=== PATIENT | female | born 1965 | race Caucasian/White ===

== ENCOUNTER 2016-07-12 16:07 | Emergency (ER) | payer OTHER ==
[~2016-07-12] VITALS: Ht 165.1 cm; Wt 62.5 kg
[~2016-07-12 16:07] MED LIST: ALBU18HF INHALATION; ALBU8.5H3 INH; AMO500 PO; BECL8.7A INH; GUAI120S26 PO; IBUP-1542 PO; PRED20TA PO
[2016-07-12 16:21] VITALS: Ht 165.1 cm; Wt 62.5 kg
[2016-07-12] MEDS ORDERED: ALBUTEROL 0.5% (NEB) 2.5 MG/0.5 ML AMP HHN STA (16:49)
[2016-07-12] MEDS ORDERED: METHYLPREDNISOLONE 125 MG INJ IM ONE (17:00)
[2016-07-12] MEDS ORDERED: IPRATROPIUM (NEB) 0.5 MG/2.5 ML AMP HHN ONE (17:00)
[2016-07-12] MEDS ORDERED: ALBU2.5V3 NEB (19:33)
[2016-07-12] MEDS ORDERED: AZIT250T94 PO (19:33)
[2016-07-12] MEDS ORDERED: PRED20TA PO (19:33)
[2016-07-12] MEDS ORDERED: ALBU18HF INHALATION (19:33)
[2016-07-12] MEDS ORDERED: CETI10CA PO (19:34)
--- NOTE | 2016-07-12 19:37 | ERD ---
ER Documentation Chief Complaint Date/Time DATE: 07/12/16 TIME: 19:35 Chief Complaint ASTHMA ATTACK HPI This 51-year-old female presents with wheezing and productive cough for last 3 days. She has a history of asthma. She has a fevers although she does have productive yellowish sputum. She believes her symptoms may be exacerbated possibly by pets at her work for smells of perfumes. She denies any chest pain , vomiting, abdominal pain, headaches. ROS All systems reviewed and are negative except as per history of present illness. Medications Home Meds Active Scripts Cetirizine Hcl* (Zyrtec*) 10 Mg Capsule, 10 MG PO DAILY, #30 TAB.CHEW Prov:YARI KOROMA MD 07/12/16 Albuterol Sulfate* (Albuterol Sulfate* Neb) 0.083%-3 Ml Neb, 2.5 MG NEB Q4 Y for SHORTNESS OF BREATH, #30 EA Prov:YARI KOROMA MD 07/12/16 Albuterol Sulfate* (Ventolin HFA*) 18 Gm Hfa.aer.ad, 2 PUFF INHALATION Q4H, #1 INHALER Prov:YARI KOROMA MD 07/12/16 Azithromycin* (Zithromax*) 250 Mg Tablet, 250 MG PO .ZPACK DIRECTED, #6 TAB TAKE 500 MG (2 TABS) THE FIRST DAY THEN 250 MG (1 TAB) DAYS 2-5 Prov:YARI KOROMA MD 07/12/16 Prednisone* (Prednisone*) 20 Mg Tab, 40 MG PO DAILY for 5 Days, TAB Prov:YARI KOROMA MD 07/12/16 Albuterol Sulfate* (Ventolin HFA*) 18 Gm Hfa.aer.ad, 2 PUFF INHALATION Q4H, #1 INHALER Prov:YARI KOROMA MD 01/22/16 Ibuprofen* (Motrin*) 600 Mg Tab, 600 MG PO Q6, #15 TAB Prov:YARI KOROMA MD 01/22/16 Prednisone* (Prednisone*) 20 Mg Tab, 40 MG PO DAILY for 4 Days, TAB Prov:YARI KOROMA MD 01/22/16 Amoxicillin* (Amoxicillin*) 500 Mg Cap, 500 MG PO TID for 10 Days, CAP Prov:YARI KOROMA MD 01/22/16 Piklmqqhwlt-T-Vscsdwuoro Hb* (Guaifenesin* DM Syrup) 120 Ml Syrup, 10 ML PO Q4H Y for COUGH, #120 ML Prov:MAGDALENA RODRIGUEZ NP 11/11/15 Beclomethasone Dip* (Qvar 40*) 7.3 Gm Inha, 2 PUFF INH BID, #1 INHALER Prov:MAGDALENA RODRIGUEZ NP 11/11/15 Albuterol Sulfate* (Proair HFA*) 8.5 Gm Hfa.aer.ad, 2 PUFF INH Q4H Y for WHEEZING AND SOB, #1 INHALER Prov:MAGDALENA RODRIGUEZ NP 11/11/15 Reported Medications [none] Unknown Strength No Conflict Check 11/11/15 Allergies Allergies: Coded Allergies: No Known Drug Allergies (Verified Allergy, Unknown, 11/11/15) PMhx/Soc History of Surgery: Yes (back surgery) Anesthesia Reaction: No Hx Neurological Disorder: No Hx Respiratory Disorders: Yes (asthma) Hx Cardiac Disorders: No Hx Psychiatric Problems: No Hx Miscellaneous Medical Probl: No Hx Alcohol Use: No Hx Substance Use: No Hx Tobacco Use: No Physical Exam Vitals Vital Signs Date Time Temp Pulse Resp B/P Pulse Ox O2 Delivery O2 Flow Rate FiO2 07/12/16 17:45 90 26 98 21 07/12/16 16:21 98.4 91 18 132/82 95 Physical Exam Const: [] Alert, rvb-mse-rxjtshhxk. Head: Atraumatic Eyes: Normal Conjunctiva ENT: Normal External Ears, Nose and Mouth. TMs normal. Neck: Full range of motion..~ No meningismus. Resp: Clear to auscultation bilaterally. Diffuse wheezing. No rales or retractions appreciated. Cardio: Regular rate and rhythm, no murmurs Abd: Soft, non tender, non distended. Normal bowel sounds Skin: No petechiae or rashes Back: No midline or flank tenderness Ext: No cyanosis, or edema Neur: Awake and alert Psych: Normal Mood and Affect Results 24 hrs Current Medications Medications (Trade) Dose Ordered Sig/Daniel Route PRN Reason Start Time Stop Time Status Last Admin Dose Admin Methylprednisolone Sodium Succinate (Solu-Medrol) 125 mg ONCE ONCE IM 07/12/16 17:00 07/12/16 17:01 DC 07/12/16 17:54 Albuterol (Proventil 0.5% (Neb)) 10 mg ONCE STAT HHN 07/12/16 16:49 07/12/16 16:51 DC 07/12/16 17:44 Ipratropium [place] (Atrovent 0.02% (Neb)) 0.5 mg ONCE ONCE HHN 07/12/16 17:00 07/12/16 17:01 DC 07/12/16 17:44 Procedures/MDM Patient was given albuterol 10 mg continuous nebulizer. And Solu-Medrol 125 mg IM. Patient had resolution of wheezing after observation and treatment. Patient has no signs of rales on serial exam and is comfortable and feels much better. Patient presents with acute wheezing with possibly a URI as an exacerbating factor possible exposure to cats or orders at her work. She will treated with Zithromax, course of prednisone and refill of every albuterol. She will be given Zyrtec as well for possible allergies to environmental factors. She should return for new or worsening symptoms with primary care doctor. The patient was stable with no new complaints during the ER course. Clinically, there is no current evidence to suggest meningitis, sepsis, acute abdomen, pneumonia, acute coronary syndrome, pulmonary embolism, or any other emergent condition appearing to require further evaluation or hospitalization. The patient should certainly return for any new or worsening symptoms per the aftercare instructions. They should otherwise follow-up with her primary care doctor for reevaluation this week. Departure Diagnosis: Primary Impression: Asthma attack Additional Impression: Acute bronchitis Bronchitis organism: unspecified organism Qualified Code: J20.9 - Acute bronchitis, unspecified organism Condition: Stable Patient Instructions: Asthma, Acute (Adult), Bronchitis With Wheezing (Adult) Additional Instructions: Recheck for new or worsening symptoms or with primary care doctor. We will treat with Zyrtec once per day for treatment of possible allergies to pets or odors. YARI KOROMA MD Jul 12, 2016 19:37
== END 2016-07-12 20:05 | disposition home or self-care (01) ==
LOC: FTE 16:07
DX: J45.901 Unspecified asthma with (acute) exacerbation (principal); J20.9 Acute bronchitis, unspecified
CPT/HCPCS: 94644; 96372; J2930; Z7502; Z7610

== ENCOUNTER 2016-08-16 10:22 | Emergency (ER) | payer OTHER ==
[~2016-08-16] VITALS: Ht 165.1 cm; Wt 81.5 kg
[~2016-08-16 10:22] MED LIST changes: +ALBU2.5V3 NEB; +AZIT250T94 PO; +CETI10CA PO
[2016-08-16 10:30] VITALS: Ht 165.1 cm; Wt 81.5 kg
[2016-08-16] MEDS ORDERED: IPRATROPIUM (NEB) 0.5 MG/2.5 ML AMP INH STA (11:10)
[2016-08-16] MEDS ORDERED: DEXAMETHASONE 10 MG/ML 1 ML INJ IM STA (11:10)
[2016-08-16] MEDS ORDERED: ALBUTEROL 0.5% (NEB) 2.5 MG/0.5 ML AMP INH STA (11:10)
--- NOTE | 2016-08-16 11:37 | RADRPT ---
PROCEDURE: XR Chest. CLINICAL INDICATION: Asthma exacerbation. TECHNIQUE: Single frontal view of the chest was obtained COMPARISON: Chest x-ray 11/11/2015. FINDINGS: The soft tissues are normal. The bony elements are normal. The heart, left side aorta, cardiomedias tinal silhouette, pulmonary vasculature and hilar structures are normal. The lungs are clear. The co stophrenic angles are normal. No significant change is noted compared to the prior study. IMPRESSION: 1. . Stable chest x-ray with no evidence of active cardiopulmonary disease. RPTAT:AAJJ Physician Ivonne Date Time Electronically viewed and signed by Rishabh Chen Physician on 08/16/2016 11:37 EUSEBIO/
[2016-08-16] MEDS ORDERED: QVAR40 INH (11:58)
[2016-08-16] MEDS ORDERED: PROM5SYR2 PO (11:59)
--- NOTE | 2016-08-16 12:26 | ERD ---
ER Documentation Chief Complaint Date/Time DATE: 08/16/16 TIME: 12:23 Chief Complaint sob,coughing,history of asthma HPI This is a 51-year-old female with a history of asthma presenting to the emergency department complaining of shortness of breath, wheezing, coughing for the past week. Patient states that she has been using her albuterol a lot more frequently for the past couple months and she made an appointment to see her primary care physician however they will not let her in for another month. Patient states her last albuterol dose was this morning without any relief. Patient denies any fevers or chest pain. ROS All systems reviewed and are negative except as per history of present illness. Medications Home Meds Active Scripts Promethazine HCl/Codeine (Prometh-Codein 6.25-10 mg/5 ml) 5 Ml Syrup, 5 ML PO QHS Y for COUGH, #90 ML Prov:JOHN MARSHALL PA-C 08/16/16 Beclomethasone Dip (Qvar 40) 1 Puff Inha, 2 PUFF INH BID, #1 INHALER Prov:JOHN MARSHALL PA-C 08/16/16 Cetirizine Hcl* (Zyrtec*) 10 Mg Capsule, 10 MG PO DAILY, #30 TAB.CHEW Prov:YARI KOROMA MD 07/12/16 Albuterol Sulfate* (Albuterol Sulfate* Neb) 0.083%-3 Ml Neb, 2.5 MG NEB Q4 Y for SHORTNESS OF BREATH, #30 EA Prov:YARI KOROMA MD 07/12/16 Albuterol Sulfate* (Ventolin HFA*) 18 Gm Hfa.aer.ad, 2 PUFF INHALATION Q4H, #1 INHALER Prov:YARI KOROMA MD 07/12/16 Azithromycin* (Zithromax*) 250 Mg Tablet, 250 MG PO .HarmanPACK DIRECTED, #6 TAB TAKE 500 MG (2 TABS) THE FIRST DAY THEN 250 MG (1 TAB) DAYS 2-5 Prov:YARI KOROMA MD 07/12/16 Prednisone* (Prednisone*) 20 Mg Tab, 40 MG PO DAILY for 5 Days, TAB Prov:YARI KOROMA MD 07/12/16 Albuterol Sulfate* (Ventolin HFA*) 18 Gm Hfa.aer.ad, 2 PUFF INHALATION Q4H, #1 INHALER Prov:YARI KOROMA MD 01/22/16 Ibuprofen* (Motrin*) 600 Mg Tab, 600 MG PO Q6, #15 TAB Prov:YARI KOROMA MD 01/22/16 Prednisone* (Prednisone*) 20 Mg Tab, 40 MG PO DAILY for 4 Days, TAB Prov:YARI KOROMA MD 01/22/16 Amoxicillin* (Amoxicillin*) 500 Mg Cap, 500 MG PO TID for 10 Days, CAP Prov:YARI KOROMA MD 01/22/16 Kpffanwqqrl-O-Ygocsfrvbl Hb* (Guaifenesin* DM Syrup) 120 Ml Syrup, 10 ML PO Q4H Y for COUGH, #120 ML Prov:MAGDALENA RODRIGUEZ NP 11/11/15 Beclomethasone Dip* (Qvar 40*) 7.3 Gm Inha, 2 PUFF INH BID, #1 INHALER Prov:MAGDALENA RODRIGUEZ NP 11/11/15 Albuterol Sulfate* (Proair HFA*) 8.5 Gm Hfa.aer.ad, 2 PUFF INH Q4H Y for WHEEZING AND SOB, #1 INHALER Prov:MAGDALENA RODRIGUEZ NP 11/11/15 Reported Medications [none] Unknown Strength No Conflict Check 11/11/15 Allergies Allergies: Coded Allergies: No Known Drug Allergies (Verified Allergy, Unknown, 11/11/15) PMhx/Soc History of Surgery: Yes (back surgery) Anesthesia Reaction: No Hx Neurological Disorder: No Hx Respiratory Disorders: Yes (asthma) Hx Cardiac Disorders: No Hx Psychiatric Problems: No Hx Miscellaneous Medical Probl: No Hx Alcohol Use: No Hx Substance Use: No Hx Tobacco Use: No Smoking Status: Never smoker Physical Exam Vitals Vital Signs Date Time Temp Pulse Resp B/P Pulse Ox O2 Delivery O2 Flow Rate FiO2 08/16/16 11:25 97 18 97 21 08/16/16 10:30 98.1 99 18 146/65 98 Physical Exam GENERAL: WD/WN, in no apparent distress, non-toxic appearing HENT: NC/AT, bilateral TM has good cone of light EYES: Conjunctiva normal NECK: Supple PULM: Inspiratory and expiratory wheezing. No rales, crackles, or rhonchi heard. No tripod position, normal labored breathing, no stridor, no evidence of using accessory muscles. CV: Good capillary refill, good S1 and S2, no murmurs appreciated GI: Non-distended, no guarding BACK: No masses. EXT: No clubbing, cyanosis, or edema. NEURO: Moves on all fours SKIN: intact, no cyanosis. PSYCH: Normal mood Results 24 hrs Current Medications Medications (Trade) Dose Ordered Sig/Daniel Route PRN Reason Start Time Stop Time Status Last Admin Dose Admin Albuterol (Proventil 0.5% (Neb)) 5 mg ONCE STAT INH 08/16/16 11:10 08/16/16 11:12 DC 08/16/16 11:24 Ipratropium [place] (Atrovent 0.02% (Neb)) 1 mg ONCE STAT INH 08/16/16 11:10 08/16/16 11:12 DC 08/16/16 11:24 Dexamethasone (Decadron) 10 mg ONCE STAT IM 08/16/16 11:10 08/16/16 11:12 DC 08/16/16 11:20 Procedures/MDM This is a 51-year-old female with a history of asthma patient presents to the ER with asthma exacerbation, low suspicion for status asthmaticus, pneumonia, inhaled foreign body, or other life threatening pulmonary emergencies due to physical examination. There was no evidence of respiratory distress. Patient was saturating well on room air throughout this whole encounter. RT was consulted in the ED, breathing treatment 5 mg continuous albuterol and 1 mg Atrovent was administered. Decadron 10 mg IM was administered. Patient was saturating well on room air and wheezing improved. Patient has been using her albuterol a lot more frequently with no improvement of her wheezing and she want to be able to see her primary care physician for another month, I have discussed the patient to call and try to make it sooner stating that you were referred by the emergency department. A prescription for Qvar twice a day was given to patient until she is able to follow-up with her primary care physician. Discussed to use albuterol as needed. Hemodynamically stable. discussed to have a close follow-up with a primary care physician, discussed to return to the ED if not improving as expected or if condition worsens. Patient understood and agreed with this plan. Departure Diagnosis: Primary Impression: Asthma with acute exacerbation Asthma severity: unspecified severity Qualified Code: J45.901 - Asthma with acute exacerbation, unspecified asthma severity Condition: Stable Patient Instructions: Asthma Medications, Asthma, Acute (Adult) Referrals: CASE OLVERA MD (PCP) Additional Instructions: FOLLOW UP WITH YOUR PRIMARY CARE PHYSICIAN TOMORROW.Return to this facility if you are not improving as expected. Visite a keith mdico maana para un EXAMEN.Regrese a estas instalaciones si no se mejora toshia esperbamos o toshia le dijimos. [place] toda la medicina shari y toshia se le indic. [place] toda la medicina shari y toshia se le indic. La medicina que se le recet puede causarle sueo.NO DEBE MANEJAR NI OPERAR MAQUINARIAS PELIGROSAS mientras esta tomando esta medicina! La medicina que se le recet puede causarle sueo.NO DEBE MANEJAR NI OPERAR MAQUINARIAS PELIGROSAS mientras esta tomando esta medicina! JOHN MARSHALL PA-C Aug 16, 2016 12:26
== END 2016-08-16 14:01 | disposition home or self-care (01) ==
LOC: FTE 10:22
DX: J45.901 Unspecified asthma with (acute) exacerbation (principal)
CPT/HCPCS: 71010; 94664; 96372; J1100; Z7502; Z7610

== ENCOUNTER 2018-11-22 17:25 | Emergency (ER) | payer OTHER ==
[~2018-11-22] VITALS: Wt 78.9 kg
[~2018-11-22 17:25] MED LIST changes: -ALBU8.5H3 INH; +ALBU8.5H8 INH; -AMO500 PO; +AMOX500C2 PO; +AZIT250T PO; -AZIT250T94 PO; +GUAI120S25 PO; -GUAI120S26 PO; +PROM5SYR2 PO; +QVAR40 INH
[2018-11-22] MEDS ORDERED: IBUPROFEN 600 MG TAB PO ONE (18:30)
[2018-11-22] MEDS ORDERED: HYDROCODONE/APAP (5/325) TAB PO ONE (18:30)
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
[2018-11-22] MEDS ORDERED: IBUP-1542 PO (20:46)
[2018-11-22] MEDS ORDERED: CYCL10TA7 PO (20:46)
[2018-11-22 21:01] VITALS: BP 137/82; PULSE 79; RESP 18
== END 2018-11-22 21:03 | disposition home or self-care (01) ==
LOC: FTE 17:25
DX: M62.838 Other muscle spasm (principal); J45.909 Unspecified asthma, uncomplicated
CPT/HCPCS: 72125; 73000; 73030; 73510; Z7502; Z7610